=== PATIENT | female | born 1955 ===

== ENCOUNTER → 2024-12-07 | Outpatient (CLI) | payer SELFPAY ==
[2024-12-07 18:32] LABS: Bacterial Vaginosis PCR Negative (NEGATIVE); Candida Group, PCR NOT DETECTED (NOT DETECT); Candida glabrata-krusei, PCR NOT DETECTED (NOT DETECT)
== END ==
LOC: LAB 14:31 → LAB SHORT 14:31
PROVIDERS: Advanced Practice Midwife
DX: N76.0 Acute vaginitis (principal)
CPT/HCPCS: 81515